=== PATIENT | male | born 1970 | race Caucasian/White ===

== ENCOUNTER 2024-02-13 13:42 | Emergency (ER) | payer MEDICAID, SELFPAY ==
[2024-02-13 13:43] VITALS: BP 169/104; PULSE 77; RESP 20; TEMP 36.2; O2SAT 96; BMI 35.3
--- NOTE | 2024-02-13 14:02 | CT_ITS ---
STUDY: CT SOFT TISSUE NECK WITH CONTRAST REASON FOR EXAM: Male, 53 years old. . RADIATION DOSAGE (If Supplied By Facility): CTDIvol = ( 16.97 ) mGy, DLP = ( 470.49 ) mGycm TECHNIQUE: The patient was scanned in a multi-detector CT scanner. High resolution transaxial imaging was performed following intravenous administration of 100 CC ISOVUE 300. Sagittal and coronal images were reconstructed. Individualized dose optimization techniques were used for this CT. COMPARISON: None. FINDINGS: Normal bilateral parotid glands. Normal bilateral steak tenderizer machine spaces. Normal bilateral parapharyngeal spaces. Normal bilateral carotid spaces. Normal bilateral sublingual and submandibular glands and spaces. Normal visualized nasopharynx. Normal retropharyngeal space. Normal perivertebral space. Normal visualized bilateral faucial tonsils. The visualized tongue, tongue base and oropharynx are normal. There are minimally enlarged lymph nodes of the neck, with preservation of normal eric architecture, consistent with a reactive lymph hyperplasia. There is no demonstrated solid or cystic mass lesion. There is no abnormal contrast enhancement. Normal epiglottis, bilateral vallecula and hypopharynx. The pre-epiglottic and paraglottic adipose spaces are normal. Normal visualized bilateral piriform sinuses, aryepiglottic folds, vocal cords, and arytenoid-cricoid articulations. Normal subglottic trachea. Mild enlargement with focal calcification in the left lobe of the thyroid. Normal visualized pulmonary apices. Normal visualized paranasal sinuses. Normal visualized cervical spine. CT/Soft Tissue Neck WITH Contrast IMPRESSION: Mild heterogeneous enlargement of the left lobe of the thyroid. Small benign-appearing bilateral cervical lymph nodes. Electronically Signed: Adin Rivera MD at 15:17 EDT ,
--- NOTE | 2024-02-13 14:04 | EDS_ITS ---
HPI History of Present Illness Chief Complaint: Other, Pain/Inj Informant: patient Narrative Narrative: 53-year-old male history of HIV presenting to the emergency department with swollen neck lymph nodes. Patient states that he has had swelling of his lymph nodes in his neck for 6 months ever since he had an umbilical hernia repair. He states he mentioned it to his surgeon who referred him to primary care. He states his primary care is incompetent and has not done anything for it. He states that he talked about this with his HIV doctor through the [facility]. He states that he has had blood work I let them handle everything and does not know what his last CD4 count was. Patient denies any fevers or night sweats. He denies any rashes or sores in the past 6 months. States his hernia repair has healed. He notes a chronic cough over the past 6 months. He denies weight loss. He states that when he was younger and he had some teeth removed the doctor had to drain his lymph nodes with a large needle. Patient denies any swollen lymph nodes in the axilla or groin. [facility] Medical History HIV (human immunodeficiency virus infection) Acute cholecystitis history cysto with basket extraction Kidney stone Home Medications ?Medication ?Instructions ?Recorded ?Last Taken ?Type efavirenz 600 mg-emtricitabine 200 1 tab PO QHS 07/23/17 Unknown History mg-tenofovir disoprox 300 mg tablet (Atripla) bictegravir 50 mg-emtricitabine 1 tab PO DAILY 02/13/24 Unknown History 200 mg-tenofovir alafenam 25 mg tablet (Biktarvy) fluticasone propionate 50 1 spray intranasal QHS 02/13/24 Unknown History mcg/actuation nasal spray,suspension hydrocortisone 1 % topical ointment 1 applic topical BID 02/13/24 Unknown History lorazepam 1 mg tablet 1 mg PO DAILY 02/13/24 Unknown History omeprazole 40 mg capsule,delayed 40 mg PO DAILY 02/13/24 Unknown History release valsartan 40 mg tablet 40 mg PO DAILY 02/13/24 Unknown History Allergy/AdvReac Type Severity Reaction Status Date / Time Sulfa (Sulfonamide Allergy Hives Verified 02/13/24 13:43 Antibiotics) Family History Father Heart disease Grandfather Heart disease Surgical History H/O hernia repair Social History household members: family Smoking Status: Never smoker alcohol intake: never substance use type: does not use ROS ROS ED Constitutional Constitutional ED: Denies chills, fever(s), sweats or weight loss Eyes Eyes: Denies change in vision or diplopia ENT ENT ED: Denies ear pain, rhinorrhea or sore throat Cardiovascular Cardiovascular: Denies chest pain, orthopnea, palpitations or racing heartbeat Respiratory/Chest Respiratory/Chest: Reports cough; Denies dyspnea, dyspnea on exertion or orthopnea Gastrointestinal Gastrointestinal: Denies abdominal pain, diarrhea, nausea or vomiting Genitourinary Genitourinary ED: Denies dysuria, hematuria or urinary frequency Musculoskeletal Musculoskeletal: Denies arthralgias or myalgias Integumentary Denies abscess or rash Neurologic Neurologic: Denies headache(s) or weakness Psychiatric Psychiatric: Denies anxiety, depression, suicidal ideation or suicidal thoughts Endocrine Endocrinology: Denies polydipsia, polyphagia or polyuria Hematologic/Lymphatic Hematologic/Lymphatic: Reports as per HPI and lymphadenopathy Allergic/Immunologic Allergic/Immunologic ED: Denies mouth swelling, tongue swelling or urticaria EXAM Physical Exam Const Vital Signs: 02/13/24 13:43 02/13/24 13:52 Temperature 97.2 F L Temperature Source Temporal Pulse Rate 77 Respiratory Rate 20 H Respiratory Effort Normal Non-Labored Respiratory Pattern Normal Blood Pressure 169/104 H Blood Pressure Mean 125 Pulse Ox 96 Oxygen Delivery Method Room Air Positive well nourished, well developed and obese General Appearance ED: well developed Nutritional Appearance: obese HEENT Reports normocephalic, head/scalp atraumatic and moist mucous membranes Eyes PERRL and EOMs intact bilaterally Neck no lymphadenopathy, supple and no JVD Resp normal respiratory effort and clear to auscultation bilaterally Cardio regular rate, regular rhythm and no murmurs GI normal to inspection, nondistended, normoactive bowel sounds and non-tender Palpation: soft Back/Spine no CVA tenderness and normal ROM Extremity normal to inspection General Extremety ED: Negative for edema General Extremity: Negative for edema Neuro oriented x3 and CN's II-XII intact bilaterally Sensorium / Orientation: alert Motor Exam: strength 5/5 throughout Psych mental status grossly normal Mood & Affect: Negative for depressed or tearful Skin no rashes or lesions noted and no wounds MDM MDM MDM Narrative Medical decision making narrative: Differential diagnosis would include but not limited to malignancies complications HSV salivary gland disorders lymph node abscess CBC CD4 BMP were obtained and a CT of the neck with IV contrast was ordered. Nursing informing that the patient became quite mad when they were unable to draw blood work on the first attempt. He asked to speak with me and I spoke with the patient who informs me that I am about ready to get a statistical assistant involved because this has been 6 months of dealing with this. I informed him that nursing offered a different supervisor [employer] and ED declined he then told me that he needed to have somebody else draw blood work that is more professional and can actually get. The patient is using numerous expletives and talking with me and I tried to inform the patient that it is not uncommon to not get blood draw with first needlestick. CBC returned with a white count of 4.6 hemoglobin 12.9 platelet count is 160. There is normal differential on the CBC. BMP within normal limits except for glucose of 117. Liver enzymes showed a total bilirubin of 2.1. CT of the neck with IV contrast was obtained. From the body of the radiologist read: There are minimally enlarged lymph nodes of the neck, with preservation of normal eric architecture, consistent with a reactive lymph hyperplasia. There is no demonstrated solid or cystic mass lesion. There is no abnormal contrast enhancement. I do not see an obvious emergent cause for the patient's symptomology. I would recommend PCP or ENT follow-up. I can provide him with the name of a local ENT. Apparently the patient's PCP called while patient was waiting for results and was glad he was in the emergency department to see what we thought and will be referring him to a specialist as well. History & Record Review Discussion w/independent historian: Patient Lab Data Attestation: I reviewed the patient's lab results. Labs: Laboratory Results - last 24 hr 02/13/24 14:40 WBC 4.6 RBC 4.12 L Hgb 12.9 L Hct 41.4 MCV 100.5 H MCH 31.3 MCHC 31.2 L RDW Std Deviation 57.8 H RDW Coeff of Stanley 15.5 H Plt Count 160 MPV 10.7 Immature Gran % (Auto) 0.200 Neut % (Auto) 62.7 Lymph % (Auto) 29.2 [place] % (Auto) 6.0 Eos % (Auto) 1.5 Baso % (Auto) 0.4 Absolute Neuts (auto) 2.9 Absolute Lymphs (auto) 1.35 Nucleated RBC % 0 Sodium 140 Potassium 3.8 Chloride 107 Carbon Dioxide 28.0 Anion Gap 5 BUN 16 Creatinine 1.02 Estim Creat Clear Calc 90.23 Est GFR (MDRD) Af Amer 97 Est GFR (MDRD) Non-Af 80 BUN/Creatinine Ratio 15.7 Glucose 117 H Calcium 9.4 Total Bilirubin 2.10 H AST 17 ALT 24 Alkaline Phosphatase 88 Total Protein 8.1 Albumin 4.5 Globulin 3.6 Albumin/Globulin Ratio 1.2 Radiography Diagnostic Testing: Clinical Impression(s) from Imaging Studies Soft Tissue Neck CT 02/13/24 14:02 IMPRESSION: Mild heterogeneous enlargement of the left lobe of the thyroid. Small benign-appearing bilateral cervical lymph nodes. Electronically Signed: Adin Rivera MD at 15:17 EDT , Chest X-Ray 02/13/24 15:05 IMPRESSION: No acute abnormality is seen. Electronically Signed: Adin Rivera MD at 15:18 EDT , Discharge Plan Triage Chief Complaint: Other, Pain/Inj ED Provider: Bharat Tate Dx/Rx/DC Orders Prescriptions: No Action [id number] [Atripla] 1 TAB tablet 1 tab PO QHS hydrocortisone 1 % ointment 1 applic topical BID omeprazole 40 mg capsule,delayed release(DR/EC) 40 mg PO DAILY lorazepam 1 mg tablet 1 mg PO DAILY fluticasone propionate 50 mcg/actuation spray,suspension 1 spray INTRANASAL QHS valsartan 40 mg tablet 40 mg PO DAILY Biktarvy 50-200-25 mg tablet 1 tab PO DAILY Primary Care Provider: DOMINIQUE LAGUNA Referrals: Ruben Borden MD [Non-Staff] - Print Language: Pashto
--- NOTE | 2024-02-13 14:29 | ED.RN ---
This nurse attempted an IV on this patient. I was unable to advance the catheter to obtain lab work. He said, I just want to do the scans. I've had blood work for the last 2 weeks. I'll just call my nursing scheduler. I've never been treated this way. I'll just got to [facility] and have it done and then come back for the scans. I educated the patient that the doctor would like to see if he had any infection and other various lab values. I did tell him that we are not affiliated with the [facility]. He then asked me to leave the room. Dr. Tate informed and went to talk to patient. Per Dr. Tate lab work needed to be done for the CT scan to be ordered. Charge nurse notified. Charge nurse did get IV in left arm.
--- NOTE | 2024-02-13 14:39 | ED.RN ---
that christiano merida better be ready for a lawsuit. i told him I needed help and he didnt dorisking care. and he needs a shower, he's gross.
[2024-02-13 14:50] LABS: Absolute Lymphocyte Count 1.35 X10^3/uL (0.83-4.51); Absolute Neutrophil Count 2.9 X10^3/uL (2.0-7.7); Basophil# 0.02 X10^3/uL; Basophil% 0.4 % (0-1); Eosinophil# 0.07 X10^3/uL; Eosinophils% 1.5 % (0-5); Hematocrit 41.4 % (40-54); Hemoglobin 12.9 g/dL (13.0-16.5); Lymphocyte # 1.35 X10^3/ul (0.83-4.51); Lymphocyte % 29.2 % (19-41); Mean Corp Hgb Conc 31.2 g/dL (32-36); Mean Corpuscular Hgb 31.3 pg (27.0-32.0); Mean Corpuscular Volume 100.5 fL (80-94); Mean Platelet Vol. 10.7 fl (6.2-12.0); Monocyte# 0.28 X10^3/uL; NRBC Flagged by Analyzer 0 % (0-5); Neutrophil % 62.7 % (47-70); Platelet Count 160 K/mm3 (150-450); RBC Distribution Width CV 15.5 % (11.6-14.6); RBC Distribution Width SD 57.8 fl (35.1-43.9); Red Blood Count 4.12 M/mm3 (4.6-6.2); White Blood Count 4.6 K/mm3 (4.4-11.0)
--- NOTE | 2024-02-13 15:05 | RAD_ITS ---
STUDY: X-RAY CHEST REASON FOR EXAM: Male, 53 years old. Cough TECHNIQUE: PA and lateral views of the chest. COMPARISON: Comparison is made with prior study dated August 17, 2013. FINDINGS: The lungs are clear and expanded. Scattered calcified granulomas. There is no demonstrated pleural abnormality. Normal size heart. Normal mediastinum and avtar. Normal visualized pulmonary arteries. There is atherosclerotic tortuosity of the aortic arch and descending thoracic aorta. There are mild degenerative changes of the visualized thoracic spine. Normal visualized ribs, clavicles, and shoulders. There is no demonstrated abnormality of the visualized soft tissue structures of the upper abdomen. RAD/Chest PA and Lateral IMPRESSION: No acute abnormality is seen. Electronically Signed: Adin Rivera MD at 15:18 EDT ,
[2024-02-13 15:14] LABS: ALB/GLOB Ratio 1.2 RATIO (0.9-2.4); AST(SGOT) 17 U/L (15-37); Alanine Aminotransfer ALT/SGPT 24 U/L (16-61); Albumin, Serum 4.5 g/dL (3.2-5.0); Alkaline Phosphatase 88 U/L (45-117); Anion Gap 5 (5-15); BUN 16 mg/dL (7-18); BUN/Creat Ratio 15.7 RATIO (10-20); Calcium,Total 9.4 mg/dL (8.5-10.1); Chloride 107 mmol/L (98-107); Creatinine, Serum 1.02 mg/dL (0.70-1.30); EST Glomerular Filtration Rate 80 mL/min (>60); Est Glom Filt Rate - Afr Amer 97 mL/min (>60); Estimated Creatinine Clearance 90.23 ml/min; Globulin 3.6 g/dL (2.2-4.2); Glucose 117 mg/dL (74-106); Potassium 3.8 mmol/L (3.5-5.1); Protein, Total 8.1 g/dL (6.4-8.2); Sodium Level 140 mmol/L (136-145)
[2024-02-13 15:43] VITALS: BP 152/92; PULSE 75; RESP 16; O2SAT 97
[2024-02-13 15:50] VITALS: BP 152/92; PULSE 75; RESP 16; TEMP 35.8; O2SAT 97
[2024-02-15 17:08] LABS: Absolute CD4 Helper 486 /uL (359-1519); Basophils (Absolute) 0 x10E3/uL (0.0-0.2); Eosinophils 2 % (Not Estab.); Eosinophils (Absolute) 0.1 x10E3/uL (0.0-0.4); Hematocrit 39.2 % (37.5-51.0); Immature Granulocytes 0 % (Not Estab.); Immature Granulocytes Absolute 0 x10E3/uL (0.0-0.1); Lymphs 24 % (Not Estab.); MCH 32.2 pg (26.6-33.0); MCHC 30.6 g/dL (31.5-35.7); MCV 105 fL (79-97); Monocytes 5 % (Not Estab.); Monocytes (Absolute) 0.2 x10E3/uL (0.1-0.9); Neutrophils 68 % (Not Estab.); Neutrophils (Absolute) 2.8 x10E3/uL (1.4-7.0); Percent % CD4 Pos. Lymph. 48.6 % (30.8-58.5); Platelets 152 x10E3/uL (150-450); RBC Count 3.73 x10E6/uL (4.14-5.80); RDW 14.5 % (11.6-15.4)
== END 2024-02-13 15:51 | disposition home or self-care (01) ==
PROVIDERS: Emergency Provider Emergency Medicine; Referring Provider Emergency Medicine; Visit Provider Emergency Medicine
DX: R59.0 Localized enlarged lymph nodes (principal); Z21 Asymptomatic human immunodeficiency virus [HIV] infection status; Z87.442 Personal history of urinary calculi; R05.9 Cough, unspecified; E66.9 Obesity, unspecified
CPT/HCPCS: 70491; 71046; 80053; 85025; 86361; 99284; Q9967; A4216